=== PATIENT | female | born 1945 | race Caucasian/White ===

== ENCOUNTER 2017-05-08 09:42 | Outpatient (CLI) | payer OTHER, MEDICARE ==
--- NOTE | 2017-05-08 11:37 | DIAGNOSTIC IMAGING REPORT ---
PROCEDURE: MR LUMBAR SPINE W/O CONTRAST INDICATION: LUMBAR RADICULOPATHY CHRONIC TECHNIQUE: Noncontrast T1, T2, and STIR sagittal images. T1 and T2 axial images. COMPARISON: Outside lumbar spine x-ray 05/04/2017. FINDINGS: Mild dextroconvex thoracolumbar spine and mild compensatory levoconvex lumbar spine scoliosis with large spurs and desiccation of all the lumbar discs. Grade 1 L4-5 retrolisthesis and grade 1 L5-S1 anterolisthesis. There is no fracture or suspicious osseous lesion. L3-4 and L4-5 endplate reactive bone marrow edema secondary to degenerative changes. Normal conus. Paraspinal soft tissues are normal. L1-2: Small broad-based disc bulge and mild facet arthropathy resulting in moderate left foraminal stenosis. No spinal stenosis. L2-3: Moderate broad-based disc bulge/spur complex with mild facet arthropathy. Moderate bilateral foraminal stenosis. No spinal stenosis. L3-4: Mild broad-based disc bulge/spur complex, facet arthropathy and thickening of the ligament flava. There is severe right and moderate left foraminal stenosis. No spinal stenosis. L4-5: Grade 1 L4-5 retrolisthesis. Mild broad-based disc bulge/spur complex with facet arthropathy and thickening of the ligament flava. There is severe right and moderate left foraminal stenosis. There is mild spinal stenosis. L5-S1: Grade 1 L5-S1 anterolisthesis with suspected bilateral L5 spondylolysis. Moderate broad-based disc bulge and mild facet arthropathy. There is moderate bilateral foraminal stenosis. There is no spinal stenosis. IMPRESSION: 1. Severe degenerative changes of the spine with mild dextroconvex thoracolumbar spine and mild compensatory levoconvex lumbar spine scoliosis 2. Grade 1 L4-5 retrolisthesis and grade 1 L5-S1 anterolisthesis with suspected L5 spondylolysis. Correlate with x-rays. 3. Multilevel disc bulging with moderate left L1-2, bilateral L2-3, severe right and moderate left L3-4, severe right and moderate left L4-5 and moderate bilateral L5-S1 foraminal stenosis 4. Mild L4-5 spinal stenosis.
== END 2017-05-08 23:00 | disposition home or self-care (01) ==
LOC: EDBD 09:42 → MRI SRH 09:42
DX: M47.816 Spondylosis without myelopathy or radiculopathy, lumbar region (principal); M51.26 Other intervertebral disc displacement, lumbar region; M48.07 Spinal stenosis, lumbosacral region; M41.85 Other forms of scoliosis, thoracolumbar region

== ENCOUNTER 2017-05-19 10:40 | Outpatient (CLI) | payer OTHER, MEDICARE ==
--- NOTE | 2017-05-19 11:14 | DIAGNOSTIC IMAGING REPORT ---
PROCEDURE: DEXA BONE DENSITY STUDY CLINICAL INDICATION: VIT D DIFFENCENCY; HYPOCALCIMIA COMPARISON: None. FINDINGS: LUMBAR SPINE: Bone mineral density 1.314 g/cm2, T score 2.4 normal LEFT HIP: Bone mineral density 0.836 g/cm2, T score -0.9 normal LEFT FEMORAL NECK: Bone mineral density 0.638 g/cm2, T score -1.9 osteopenia FRACTURE RISK CALCULATION ( when applicable): 10-year fracture risk of a major osteoporotic fracture 10% and of a hip fracture 2.7% (T score greater or equal to -1.0 to: NORMAL) (T score from -1.1 to -2.4: OSTEOPENIA) (T score ess than or equal to -2.5: OSTEOPOROSIS) IMPRESSION: 1. Femoral neck osteopenia with a 10-year major fracture risk of 10% and a hip fracture risk of 2.7%
== END 2017-05-19 23:00 ==
LOC: XR SRH 10:40
DX: E55.9 Vitamin D deficiency, unspecified (principal); E83.51 Hypocalcemia; M85.88 Other specified disorders of bone density and structure, other site